=== PATIENT | female | born 1955 ===

== ENCOUNTER 2017-07-12 14:19 | Outpatient (CLI) | payer OTHER ==
--- NOTE | 2017-07-12 16:28 | MRI ---
MRI BRAIN: HISTORY: Memory loss, R41.3. TECHNIQUE: Multiplanar, multisequence noncontrast-enhanced MRI images of brain obtained. FINDINGS: Images demonstrate the brain to be unremarkable. No evidence of intracranial masses, hemorrhages, s trokes, or contusions seen. Ventricles are of normal size. The sinuses are well aerated. Normal flow voids seen in the major intracranial vessels. IMPRESSION: Unremarkable noncontrast-enhanced CT of the brain. POS: JULIO C
== END 2017-07-12 14:20 | disposition home or self-care (01) ==
LOC: TBSIIMAG 14:19
PROVIDERS: ATTEND Psychiatry & Neurology Neurology
DX: R41.3 Other amnesia (principal)
CPT/HCPCS: 70551